=== PATIENT | male | born 1960 | race Caucasian/White ===

== ENCOUNTER → 2017-08-06 13:29 | Outpatient (CLI) | payer OTHER ==
[~2017-08-06 13:29] MED LIST: CATAFLAM50 MG PO; ENALAPRIL MALEA20 MG PO; FLEXERIL10 MG PO; HYZAAR 100-121 UDTAB; HYZAAR 100-121 UDTAB PO; HYZAAR 100/25 T1 TAB; HYZAAR 100/25 T1 TAB PO; NORVASC5 MG PO; VASOTEC20 M1; VASOTEC20 M1 PO; VOLTAREM 50 MG PO
== END | disposition home or self-care (01) ==
LOC: PPHC 13:29
DX: R19.09 Other intra-abdominal and pelvic swelling, mass and lump (principal)

== ENCOUNTER 2017-08-10 11:36 | Outpatient (CLI) | payer OTHER | END 2017-08-10 11:49 | disposition home or self-care (01) | LOC: SONOGRAMA 11:36 | DX: K40.90 Unilateral inguinal hernia, without obstruction or gangrene, not specified as recurrent (principal) ==

== ENCOUNTER 2017-08-24 14:33 | Outpatient (CLI) | payer OTHER | END 2017-08-24 14:38 | disposition home or self-care (01) | LOC: LAB 14:33 | DX: K40.30 Unilateral inguinal hernia, with obstruction, without gangrene, not specified as recurrent (principal) ==

== ENCOUNTER 2017-08-24 14:39 | Outpatient (CLI) | payer OTHER | END 2017-08-24 14:43 | disposition home or self-care (01) | LOC: EKG 14:39 | DX: K40.30 Unilateral inguinal hernia, with obstruction, without gangrene, not specified as recurrent (principal) ==

== ENCOUNTER 2017-08-24 15:40 | Outpatient (CLI) | payer OTHER | END 2017-08-24 17:16 | disposition home or self-care (01) | LOC: RAD 15:40 | DX: K40.30 Unilateral inguinal hernia, with obstruction, without gangrene, not specified as recurrent (principal); Z01.811 Encounter for preprocedural respiratory examination ==

== ENCOUNTER 2017-09-04 05:15 | Day surgery (SDC) | payer OTHER | END 2017-09-04 15:00 | disposition home or self-care (01) | LOC: CIR.AMB 05:15 | DX: K40.30 Unilateral inguinal hernia, with obstruction, without gangrene, not specified as recurrent (principal) ==

== ENCOUNTER 2017-12-10 08:11 | Outpatient (CLI) | payer OTHER | END 2017-12-10 09:00 | disposition home or self-care (01) | LOC: LAB 08:11 | DX: I10 Essential (primary) hypertension (principal); E78.2 Mixed hyperlipidemia; E11.9 Type 2 diabetes mellitus without complications; N40.0 Benign prostatic hyperplasia without lower urinary tract symptoms; R97.20 Elevated prostate specific antigen [PSA] ==